=== PATIENT | female | born 1950 | race Native Hawaiian/Other Pacific Islander ===

== ENCOUNTER 2017-09-21 11:18 | Outpatient (CLI) | payer OTHER | END 2017-09-21 18:59 | disposition home or self-care (01) | LOC: LABW 11:18 | DX: R19.7 Diarrhea, unspecified (principal) | CPT/HCPCS: 82272; 87015; 87045; 87205; 87324; 87328; 87329; 87449; 87899 ==

== ENCOUNTER 2017-10-26 08:26 | Outpatient (CLI) | payer OTHER | END 2017-10-26 21:48 | disposition home or self-care (01) | LOC: LABW 08:26 | DX: R19.7 Diarrhea, unspecified (principal) | CPT/HCPCS: 82272; 87015; 87045; 87205; 87324; 87328; 87329; 87449; 87899 ==

== ENCOUNTER 2017-11-07 10:19 | Outpatient (CLI) | payer OTHER | END 2017-11-07 19:20 | disposition home or self-care (01) | LOC: LABW 10:19 | DX: A04.8 Other specified bacterial intestinal infections (principal) | CPT/HCPCS: 82272; 87015; 87045; 87205; 87324; 87328; 87329; 87449; 87899 ==